=== PATIENT | female | born 2000 | race Caucasian/White ===

== ENCOUNTER 2020-12-21 17:07 | Day surgery (SDC) | payer BC, OTHER ==
[2020-12-21] MEDS ORDERED: hydrALAZINE 20 MG/ML VIAL SLOW IVP PRN (17:54)
[2020-12-21] MEDS ORDERED: Acetaminophen 500 MG TAB PO PRN (18:09)
[2020-12-21] MEDS ORDERED: Lactated Ringer's 1,000 ML IV SCH (18:15)
[2020-12-21 19:04] LABS: Bilirubin Neg (Negative); Blood, Urine Negative (Negative); Clarity Clear (Clear); Glucose, Urine (Dipstick) Normal (Negative); Ketone, Urine Negative (Negative); Leukocyte Negative (Negative); Nitrite Negative (Negative); Protein, Urine (Dipstick) Negative (Neg-Trace); Urobilinogen Normal mg/dL (Less than 2)
[2020-12-21 19:10] LABS: Urine Culture Reflex No No
[2020-12-21 19:36] LABS: RBC/HPF 0-3 HPF (0-3); WBC/HPF 0-3 HPF (0-3)
[2020-12-21 19:41] LABS: Bacteria/HPF 1+ HPF (None Seen)
== END 2020-12-21 20:42 | disposition home or self-care (01) ==
LOC: CSHLD/OP 17:07
PROVIDERS: ATTEND Obstetrics & Gynecology
DX: O99.891 Other specified diseases and conditions complicating pregnancy (principal); R10.30 Lower abdominal pain, unspecified; Z3A.19 19 weeks gestation of pregnancy
CPT/HCPCS: 81001; 99283